=== PATIENT | female | born 1965 | race Caucasian/White ===

== ENCOUNTER → 2016-10-05 | Outpatient (REF) | payer OTHER | LOC: M LAB REF 11:38 | PROVIDERS: ATTEND Nurse Practitioner Family | DX: E83.118 Other hemochromatosis (principal) ==

== ENCOUNTER → 2017-01-12 | Outpatient (REF) | payer OTHER | LOC: M LAB REF 09:37 | PROVIDERS: ATTEND Physician Assistant Medical | DX: N30.00 Acute cystitis without hematuria (principal) ==

== ENCOUNTER → 2017-05-02 | Outpatient (REF) | payer OTHER | LOC: M LAB REF 17:21 | PROVIDERS: ATTEND Surgery | DX: D48.5 Neoplasm of uncertain behavior of skin (principal) ==

== ENCOUNTER → 2017-10-04 | Outpatient (REF) | payer OTHER ==
[2017-10-04 14:33] LABS: FERRITIN 119 NG/ML (8-252)
== END ==
LOC: M LAB REF 13:41
DX: E83.118 Other hemochromatosis (principal)

== ENCOUNTER 2018-04-19 06:44 | Day surgery (SDC) | payer OTHER ==
[2018-04-19] MEDS: NS 1,000 ML IV (06:00)
[2018-04-19] MEDS ORDERED: PROPOFOL 200 MG/20 ML VIAL As Ordered (07:05)
[2018-04-19] MEDS ORDERED: LIDOCAINE 2% INJ 100 MG/5 ML SDV (FOR ANES.) As Ordered (07:05)
== END 2018-04-19 08:54 | disposition home or self-care (01) ==
LOC: M OPP 06:44
DX: Z12.11 Encounter for screening for malignant neoplasm of colon (principal); D12.4 Benign neoplasm of descending colon; K64.0 First degree hemorrhoids; K57.30 Diverticulosis of large intestine without perforation or abscess without bleeding; Z88.2 Allergy status to sulfonamides; Z80.8 Family history of malignant neoplasm of other organs or systems
CPT/HCPCS: 45380

== ENCOUNTER → 2018-10-09 | Outpatient (REF) | payer OTHER | LOC: M LAB REF 12:01 | PROVIDERS: ATTEND Nurse Practitioner Family | DX: E83.118 Other hemochromatosis (principal) ==

== ENCOUNTER → 2020-11-01 | Outpatient (CLI) | payer OTHER ==
--- NOTE | 2020-11-01 09:37 | REP ---
INDICATION: PAIN LT SHOULDER. COMPARISON: None. TECHNIQUE: Coronal oblique T1, T2 fat sat, sagittal oblique T2 fat sat, axial T2 fat sat, gradient echo. FINDINGS: Rotator cuff: There is [id number] ill-defined high signal on T2 weighted images involving the supraspinatus tendon and subscapularis tendon, compatible with tendinopathy/tendinitis. No tear is seen. Acromioclavicular joint: There are mild hypertrophic degenerative changes of the acromioclavicular joint with mild fluid in the joint. Acromion: Type 2 Biceps Tendon: In bicipital groove, no tenosynovitis. Hill Sach's deformity: None. Deltoid muscle: No abnormal signal. Biceps labral complex: Abnormal signal is seen in the biceps labral complex compatible with a tear. Labrum: The anterior aspect of the superior labrum adjacent to the biceps labral complex appears torn. Cartilage: No defects. Bone marrow: No abnormal signal. Joint fluid: No effusion. IMPRESSION: Supraspinatus and subscapularis tendinopathy/tendinitis. No rotator cuff tendon tear. Mild hypertrophic degenerative changes acromioclavicular joint with a type 2 acromion. Abnormal signal in the biceps labral complex and adjacent superior labrum anteriorly compatible with tears at these locations. <Electronically signed by Jaxson Mcdonald > 11/01/20 0997
== END ==
LOC: M RAD 07:51
PROVIDERS: ATTEND Registered Nurse
DX: M75.92 Shoulder lesion, unspecified, left shoulder (principal); M25.512 Pain in left shoulder

== ENCOUNTER → 2020-11-01 | Outpatient (CLI) | payer OTHER ==
--- NOTE | 2020-11-01 11:57 | REPMRS ---
Patient History The patient states she had a clinical breast exam in September 2020. Family history of breast cancer at age 40 in maternal cousin. Digital Woman Screen Mammo: November 01, 2020 - Exam #: [id number] Bilateral CC and MLO view(s) were taken. Technologist: RT Radha Prior study comparison: March 11, 2019, bilateral digital mammo screening bilat, performed at [facility]. March 30, 2017, bilateral digital mammo screening bilat, performed at [facility]. October 08, 2015, bilateral digital mammo screening bilat, performed at [facility]. FINDINGS: There are scattered fibroglandular densities. The Volpara volumetric breast density category is:B. There has been no change in the appearance of the mammogram from the prior studies. There is a mild amount of scattered fibroglandular density which is fairly symmetric. There is no interval development of dominant mass, architectural distortion, or grouped microcalcification suggestive of malignancy. 3-D tomosynthesis shows no additional findings. Assessment: BI-RADS/ACR category 1 mammogram. Negative Mammogram. Recommendation Routine screening mammogram of both breasts in 1 year (for women over age 40). This patient's [facility] Lifetime Breast Cancer Risk is estimated at 7.9 %. This mammogram was interpreted with the aid of an FDA-approved computer-aided dectection system. Electronically Signed By: Juan David Krishna MD 11/01/20 2644
== END ==
LOC: M WHC 10:26
PROVIDERS: ATTEND Registered Nurse
DX: Z12.31 Encounter for screening mammogram for malignant neoplasm of breast (principal)

== ENCOUNTER → 2022-10-27 | Outpatient (REF) | payer OTHER ==
[2022-10-27 12:40] LABS: FERRITIN 124.1 NG/ML (7.3-270.7)
== END ==
LOC: M LAB REF 11:37
PROVIDERS: ATTEND Physician Assistant Medical
DX: E83.118 Other hemochromatosis (principal)

== ENCOUNTER → 2023-08-30 | Outpatient (REF) | payer OTHER | LOC: M LAB REF 11:32 | PROVIDERS: ATTEND Nurse Practitioner Family | DX: R10.9 Unspecified abdominal pain (principal) ==

== ENCOUNTER → 2023-11-08 | Outpatient (REF) | payer OTHER ==
[2023-11-08 14:49] LABS: FERRITIN 120.4 NG/ML (7.3-270.7)
== END ==
LOC: M LAB REF 12:25
PROVIDERS: ATTEND Physician Assistant Medical
DX: E83.118 Other hemochromatosis (principal)

== ENCOUNTER → 2024-02-27 | Outpatient (REF) | payer OTHER | LOC: M LAB REF 16:36 | PROVIDERS: ATTEND Physician Assistant Medical | DX: M79.673 Pain in unspecified foot (principal) ==

== ENCOUNTER → 2024-03-17 | Outpatient (CLI) | payer OTHER | LOC: M WUC 11:30 | PROVIDERS: ATTEND Physician Assistant Medical | DX: M25.571 Pain in right ankle and joints of right foot (principal) ==

== ENCOUNTER → 2024-11-06 | Outpatient (REF) | payer OTHER | LOC: M LAB REF 12:41 | PROVIDERS: ATTEND Physician Assistant Medical | DX: K57.92 Diverticulitis of intestine, part unspecified, without perforation or abscess without bleeding (principal) ==

== ENCOUNTER 2025-03-30 08:17 | Day surgery (SDC) | payer OTHER ==
[~2025-03-30] VITALS: Ht 162.6 cm; Wt 80.3 kg
[2025-03-30] MEDS ORDERED: LIDOCAINE 2% 100 MG/5 ML SDV (FOR ANES.) As Ordered ONE (08:43)
[2025-03-30] MEDS ORDERED: hydrALAZINE 20 MG/ML 1 ML VIAL As Ordered ONE (08:53)
[2025-03-30 09:04] VITALS: TEMP 97.1
[2025-03-30 09:51] VITALS: BP 133/73; O2SAT 98
== END 2025-03-30 09:52 | disposition home or self-care (01) ==
LOC: M OPP 08:17
PROVIDERS: ATTEND Internal Medicine Gastroenterology
DX: Z12.11 Encounter for screening for malignant neoplasm of colon (principal); K64.0 First degree hemorrhoids; K57.30 Diverticulosis of large intestine without perforation or abscess without bleeding; Z80.0 Family history of malignant neoplasm of digestive organs; Z88.2 Allergy status to sulfonamides
CPT/HCPCS: 45378; J0360